=== PATIENT | female | born 1980 | race Caucasian/White ===

== ENCOUNTER 2022-05-11 21:15 | Emergency (ER) | payer OTHER ==
[~2022-05-11] VITALS: Ht 162.6 cm; Wt 102.1 kg
[~2022-05-11 21:15] MED LIST: ASEN5TAB8; BUSP10TA3
[2022-05-11 21:19] VITALS: BP 108/73
== END 2022-05-12 01:08 | disposition left against medical advice (07) ==
LOC: ER 21:15
DX: Z53.21 Procedure and treatment not carried out due to patient leaving prior to being seen by health care provider (principal); I49.9 Cardiac arrhythmia, unspecified
CPT/HCPCS: 93005

== ENCOUNTER 2023-09-25 05:35 | Emergency (ER) | payer OTHER ==
[~2023-09-25] VITALS: Ht 167.6 cm; Wt 95.0 kg
[2023-09-25 05:39] VITALS: BP 155/95; PULSE 77; RESP 18; TEMP 98; O2SAT 99
== END 2023-09-25 09:21 | disposition left against medical advice (07) ==
LOC: ER 05:35
DX: R00.2 Palpitations (principal); Z53.21 Procedure and treatment not carried out due to patient leaving prior to being seen by health care provider
CPT/HCPCS: 93005